=== PATIENT | female | born 1950 | race Two or more races ===

== ENCOUNTER → 2018-05-12 07:43 | Outpatient (CLI) | payer OTHER ==
[~2018-05-12 07:43] MED LIST: BUSPAR15 MG PO; CICLOPIROX6.6 ML TP; CIPRO100 MG PO; GASTRINEX CAPSU1 CAP PO; LANTUS100 U/ML SQ; NOVOLOG100 U/ML SQ; PREVACID30 MG PO; REGLAN5 MG/ML IJ; TRICOR48 MG PO; [UNRECOGNIZED DRUG - OTHER]
== END | disposition home or self-care (01) ==
LOC: LAB 07:43
DX: C50.511 Malignant neoplasm of lower-outer quadrant of right female breast (principal); Z85.3 Personal history of malignant neoplasm of breast; Z90.11 Acquired absence of right breast and nipple; D51.3 Other dietary vitamin B12 deficiency anemia; I10 Essential (primary) hypertension; E03.8 Other specified hypothyroidism; E78.4 Other hyperlipidemia; E08.65 Diabetes mellitus due to underlying condition with hyperglycemia; J45.20 Mild intermittent asthma, uncomplicated; M06.89 Other specified rheumatoid arthritis, multiple sites; M81.0 Age-related osteoporosis without current pathological fracture; M19.91 Primary osteoarthritis, unspecified site; M35.01 Sjogren syndrome with keratoconjunctivitis; D50.8 Other iron deficiency anemias; D51.8 Other vitamin B12 deficiency anemias; R97.0 Elevated carcinoembryonic antigen [CEA]; R97.8 Other abnormal tumor markers

== ENCOUNTER 2018-09-13 07:02 | Outpatient (CLI) | payer OTHER | END 2018-09-13 07:11 | disposition home or self-care (01) | LOC: LAB 07:02 | DX: R05 Cough (principal); R21 Rash and other nonspecific skin eruption; Z85.3 Personal history of malignant neoplasm of breast; Z90.11 Acquired absence of right breast and nipple; D51.3 Other dietary vitamin B12 deficiency anemia; I10 Essential (primary) hypertension; E03.8 Other specified hypothyroidism; E78.49 Other hyperlipidemia; E08.65 Diabetes mellitus due to underlying condition with hyperglycemia; J45.20 Mild intermittent asthma, uncomplicated; M06.80 Other specified rheumatoid arthritis, unspecified site; M81.0 Age-related osteoporosis without current pathological fracture; M19.90 Unspecified osteoarthritis, unspecified site; M35.01 Sjogren syndrome with keratoconjunctivitis; D50.8 Other iron deficiency anemias; D51.8 Other vitamin B12 deficiency anemias; E55.9 Vitamin D deficiency, unspecified; K90.89 Other intestinal malabsorption; R97.0 Elevated carcinoembryonic antigen [CEA]; R97.8 Other abnormal tumor markers; I11.9 Hypertensive heart disease without heart failure ==

== ENCOUNTER 2018-09-13 15:39 | Outpatient (CLI) | payer OTHER | END 2018-09-13 15:41 | disposition home or self-care (01) | LOC: SONOGRAMA 15:39 | DX: C50.511 Malignant neoplasm of lower-outer quadrant of right female breast (principal); Z85.3 Personal history of malignant neoplasm of breast; D51.3 Other dietary vitamin B12 deficiency anemia; I10 Essential (primary) hypertension; E03.8 Other specified hypothyroidism; E78.49 Other hyperlipidemia; E08.65 Diabetes mellitus due to underlying condition with hyperglycemia; J45.20 Mild intermittent asthma, uncomplicated; M06.9 Rheumatoid arthritis, unspecified; M81.0 Age-related osteoporosis without current pathological fracture; M19.90 Unspecified osteoarthritis, unspecified site; M35.01 Sjogren syndrome with keratoconjunctivitis ==

== ENCOUNTER 2019-01-11 07:52 | Outpatient (CLI) | payer OTHER | END 2019-01-11 08:06 | disposition home or self-care (01) | LOC: LAB 07:52 | DX: C50.811 Malignant neoplasm of overlapping sites of right female breast (principal); D50.8 Other iron deficiency anemias; D51.8 Other vitamin B12 deficiency anemias; I10 Essential (primary) hypertension; R97.0 Elevated carcinoembryonic antigen [CEA]; R97.8 Other abnormal tumor markers; M06.89 Other specified rheumatoid arthritis, multiple sites; I11.9 Hypertensive heart disease without heart failure; E11.40 Type 2 diabetes mellitus with diabetic neuropathy, unspecified; E78.49 Other hyperlipidemia ==

== ENCOUNTER 2019-01-11 08:39 | Outpatient (CLI) | payer OTHER | END 2019-01-11 08:57 | disposition home or self-care (01) | LOC: MAMO-SONO 08:39 → RAD 08:39 → MAMO-SONO 08:57 | DX: C50.812 Malignant neoplasm of overlapping sites of left female breast (principal); Z85.3 Personal history of malignant neoplasm of breast; J45.20 Mild intermittent asthma, uncomplicated; I11.9 Hypertensive heart disease without heart failure; E11.40 Type 2 diabetes mellitus with diabetic neuropathy, unspecified; E78.49 Other hyperlipidemia ==

== ENCOUNTER 2019-03-21 07:17 | Outpatient (CLI) | payer OTHER | END 2019-03-21 07:28 | disposition home or self-care (01) | LOC: SONOGRAMA 07:17 → MAMO-SONO 08:15 | DX: M25.512 Pain in left shoulder (principal) ==

== ENCOUNTER 2020-01-15 08:34 | Outpatient (CLI) | payer OTHER | END 2020-01-15 08:40 | disposition home or self-care (01) | LOC: RAD 08:34 | DX: N62 Hypertrophy of breast (principal); C50.511 Malignant neoplasm of lower-outer quadrant of right female breast; M19.012 Primary osteoarthritis, left shoulder; M19.011 Primary osteoarthritis, right shoulder ==

== ENCOUNTER 2020-01-15 17:07 | Outpatient (CLI) | payer OTHER | END 2020-01-15 17:11 | disposition home or self-care (01) | LOC: LAB 17:07 | DX: C50.511 Malignant neoplasm of lower-outer quadrant of right female breast (principal); Z85.3 Personal history of malignant neoplasm of breast; Z90.11 Acquired absence of right breast and nipple; D51.3 Other dietary vitamin B12 deficiency anemia; I10 Essential (primary) hypertension; E03.8 Other specified hypothyroidism; E78.49 Other hyperlipidemia; J45.998 Other asthma; M06.9 Rheumatoid arthritis, unspecified; M81.0 Age-related osteoporosis without current pathological fracture; M19.90 Unspecified osteoarthritis, unspecified site; M35.01 Sjogren syndrome with keratoconjunctivitis; E11.40 Type 2 diabetes mellitus with diabetic neuropathy, unspecified; Z12.11 Encounter for screening for malignant neoplasm of colon; E55.9 Vitamin D deficiency, unspecified ==

== ENCOUNTER → 2020-01-15 | Outpatient (CLI) | payer OTHER | END | disposition home or self-care (01) | LOC: TOM 12:16 | DX: M19.012 Primary osteoarthritis, left shoulder (principal); M25.512 Pain in left shoulder ==

== ENCOUNTER 2020-09-05 10:04 | Outpatient (CLI) | payer OTHER | END 2020-09-05 10:11 | disposition home or self-care (01) | LOC: LAB 10:04 | PROVIDERS: ATTEND General Practice | DX: R00.2 Palpitations (principal); R42 Dizziness and giddiness; Z12.11 Encounter for screening for malignant neoplasm of colon; E55.9 Vitamin D deficiency, unspecified; M35.01 Sjogren syndrome with keratoconjunctivitis; M06.9 Rheumatoid arthritis, unspecified; E11.65 Type 2 diabetes mellitus with hyperglycemia ==

== ENCOUNTER → 2020-09-05 | Outpatient (CLI) | payer OTHER | END | disposition home or self-care (01) | LOC: RAD 10:00 | DX: M17.11 Unilateral primary osteoarthritis, right knee (principal); M19.012 Primary osteoarthritis, left shoulder ==

== ENCOUNTER 2020-09-25 08:31 | Outpatient (CLI) | payer OTHER | END 2020-09-25 08:35 | disposition home or self-care (01) | LOC: RAD 08:31 | PROVIDERS: ATTEND Orthopaedic Surgery | DX: M13.811 Other specified arthritis, right shoulder (principal) ==

== ENCOUNTER 2020-11-24 16:04 | Outpatient (CLI) | payer OTHER | END 2020-11-24 16:05 | disposition home or self-care (01) | LOC: LAB 16:04 | DX: J45.998 Other asthma (principal); I10 Essential (primary) hypertension; D68.8 Other specified coagulation defects; M17.11 Unilateral primary osteoarthritis, right knee ==

== ENCOUNTER 2021-02-18 09:31 | Outpatient (CLI) | payer OTHER | END 2021-02-18 09:33 | disposition home or self-care (01) | LOC: RAD 09:31 | DX: M17.0 Bilateral primary osteoarthritis of knee (principal) ==

== ENCOUNTER 2021-07-10 08:33 | Outpatient (CLI) | payer OTHER | END 2021-07-10 08:42 | disposition home or self-care (01) | LOC: RAD 08:33 | DX: M17.0 Bilateral primary osteoarthritis of knee (principal) ==

== ENCOUNTER 2022-01-13 10:15 | Outpatient (CLI) | payer OTHER | END 2022-01-13 10:23 | disposition home or self-care (01) | LOC: MAMO-SONO 10:15 | PROVIDERS: ATTEND General Practice | DX: M54.2 Cervicalgia (principal); Z85.3 Personal history of malignant neoplasm of breast; Z90.12 Acquired absence of left breast and nipple ==

== ENCOUNTER → 2022-07-09 | Outpatient (CLI) | payer OTHER | END | disposition home or self-care (01) | LOC: RAD 07:58 | PROVIDERS: ATTEND Physical Medicine & Rehabilitation Hospice and Palliative Medicine | DX: M51.87 Other intervertebral disc disorders, lumbosacral region (principal) ==

== ENCOUNTER 2023-01-18 09:33 | Outpatient (CLI) | payer OTHER | END 2023-01-18 09:45 | disposition home or self-care (01) | LOC: MAMO-SONO 09:33 | PROVIDERS: ATTEND General Practice | DX: Z85.3 Personal history of malignant neoplasm of breast (principal); Z90.11 Acquired absence of right breast and nipple ==

== ENCOUNTER 2023-02-09 08:54 | Outpatient (CLI) | payer OTHER | END 2023-02-09 09:03 | disposition home or self-care (01) | LOC: SONOGRAMA 08:54 | PROVIDERS: ATTEND Physical Medicine & Rehabilitation Hospice and Palliative Medicine | DX: M25.511 Pain in right shoulder (principal); M75.01 Adhesive capsulitis of right shoulder ==

== ENCOUNTER 2023-07-13 10:21 | Outpatient (CLI) | payer OTHER | END 2023-07-13 10:24 | disposition home or self-care (01) | LOC: RAD 10:21 | PROVIDERS: ATTEND Internal Medicine Gastroenterology | DX: R10.9 Unspecified abdominal pain (principal); M79.672 Pain in left foot; M25.572 Pain in left ankle and joints of left foot ==